=== PATIENT | female | born 2000 | race Native Hawaiian/Other Pacific Islander ===

== ENCOUNTER 2023-10-12 23:08 | Emergency (ER) | payer SELFPAY ==
[~2023-10-12] VITALS: Ht 157.5 cm; Wt 78.2 kg
[~2023-10-12 23:08] MED LIST: CEPHALEXIN500 M1 PO
[2023-10-12 23:13] VITALS: TEMP 98.5
[2023-10-12] MEDS ORDERED: diphenhydrAMINE 50 MG/ML 1 ML VIAL IV ONE (23:45)
[2023-10-12] MEDS ORDERED: NS 1,000 ML IV ONE (23:45)
[2023-10-13 00:29] LABS: BASO % 0.4 % (0.0-2.0); EOS # 0.3 K/mm3 (0.0-0.7); EOS % 2.5 % (0.0-4.0); GRAN # 6.7 K/mm3 (1.4-6.5); GRAN % 66.7 % (42.2-75.2); HEMATOCRIT 42.3 % (37.0-47.0); HEMOGLOBIN 14.1 g/dl (12.5-16.0); LYMPH # 2.4 K/mm3 (1.2-3.4); LYMPH % 24.3 % (20.0-51.0); MEAN CELL VOLUME 80 fl (80.0-100.0); MEAN CORPUSCULAR HEMOGLOBIN 27 pg (27-31); MEAN CORPUSCULAR HGB CONC 33 g/dl (33.0-37.0); MEAN PLATELET VOLUME 9.8 fl (7.4-10.4); MONO # 0.6 K/mm3 (0.1-0.6); MONO % 5.8 % (1.7-9.3); PLATELET COUNT 285 K/mm3 (130-400); RED BLOOD COUNT 5.32 M/mm3 (4.10-5.30); REDCELL DISTRIBUTION WIDTH-CV 12.3 % (11.5-14.5)
[2023-10-13 00:39] LABS: ALBUMIN 3.6 gm/dL (3.5-5.0); BILIRUBIN,TOTAL 0.4 mg/dL (0.2-1.2); C-REACTIVE PROTEIN 0.75 mg/dL (0.00-0.50); CALCIUM 9.3 mg/dL (8.4-10.2); CREATININE, serum 0.8 mg/dL (0.57-1.11); POTASSIUM 3.5 mmol/L (3.5-4.5); TOTAL PROTEIN 7.8 gm/dL (6.2-8.1)
[2023-10-13 01:25] VITALS: BP 125/72; PULSE 83
== END 2023-10-13 01:38 | disposition home or self-care (01) ==
LOC: COL.ER 23:08
PROVIDERS: Nurse Practitioner
DX: R51.9 Headache, unspecified (principal)
CPT/HCPCS: J1200; J2765; J7030